=== PATIENT | female | born 1930 | race Native Hawaiian/Other Pacific Islander ===

== ENCOUNTER 2016-06-01 15:17 | Observation (INO) | payer OTHER ==
[~2016-06-01] VITALS: Ht 157.5 cm; Wt 64.2 kg
[~2016-06-01 15:17] MED LIST: ALAVERT10 M2 PO; ALPR0.5T24 PO; AMIT10TA21 PO; ASA LOW STR81 MG PO; CALCIUM + D600 MG OR; CALTRATE 600+D1 TAB PO; CENTRUM SILVER1 TAB PO; CIPRO500 MG PO; CLOP75TA2 PO; CRANBERRY250 MG PO; FE TABS325 MG PO; FERROUS GLUC324 MG PO; FURO20TA67 PO; HYDROCHLOROT12.5 M1 PO; HYDRTAB76 PO; HYZAAR1 TA1 PO; IRON OR; LEVO0.0723 PO; LEVOTHROID88 MCG PO; LIPITOR40 MG PO; LISI10TA11 PO; LORCET 5-325 MG1 TAB PO; LOSA50TA PO; MACROBID100 MG OR; MAG CITRAT1 PO; MECL25TA84 PO; MECLIZINE25 MG PO; METO25TA4 PO; MICRO-K10 MEQ PO; MUCINEX DM1 TA1 PO; NITR100C56 PO; PANT40TA PO; PREDNISONE5 M1 PO; PRILOSEC20 MG OR; PSYL0.52C PO; SIMV40TA57; SITA50TA2 PO; STOOL SOFTENER1 TA1 OR; TRAM50TA PO; TRAMADL/APAP1 TAB OR; VITAMIN D-32000 UNIT PO
[2016-06-01 16:57] LABS: PLATELET COUNT 180 K/uL (152-353)
[2016-06-01 17:17] LABS: PARTIAL THROMBOPLASTIN TIME 24.7 SECONDS (24.5-33.6)
[2016-06-01 17:20] LABS: POTASSIUM 3.8 mmol/L (3.6-5.2)
[2016-06-01] MEDS ORDERED: PANT40TA PO (17:26)
[2016-06-01 17:38] VITALS: BP 180/65; TEMP 97.7; Ht 157.5 cm; Wt 64.2 kg
[2016-06-01 20:00] VITALS: BP 168/51; TEMP 98.4
[2016-06-02 00:05] VITALS: TEMP 97.7
[2016-06-02 04:00] VITALS: BP 135/53; TEMP 97.9
[2016-06-02 05:23] LABS: PLATELET COUNT 171 K/uL (152-353)
[2016-06-02 05:52] LABS: POTASSIUM 3.4 mmol/L (3.6-5.2)
[2016-06-02 08:00] VITALS: BP 134/57; TEMP 98.7
[2016-06-02 12:00] VITALS: BP 156/58; TEMP 97.6
== END 2016-06-02 16:38 | disposition home or self-care (01) ==
LOC: MED/SURG 15:17
PROVIDERS: Emergency Medicine; ADMIT Family Medicine
DX: R07.89 Other chest pain (principal); K22.4 Dyskinesia of esophagus; R05 Cough; I10 Essential (primary) hypertension; E78.5 Hyperlipidemia, unspecified; I25.10 Atherosclerotic heart disease of native coronary artery without angina pectoris; Z95.0 Presence of cardiac pacemaker
CPT/HCPCS: 36415; 80053; 82550; 83735; 84484; 85027; 85610; 85730; 93005; 99220; G0378; G0379; J1650; J3490

== ENCOUNTER 2016-06-15 07:51 | Outpatient (CLI) | payer OTHER | END 2016-06-15 23:38 | disposition home or self-care (01) | LOC: RAD 07:51 | DX: K22.2 Esophageal obstruction (principal) ==

== ENCOUNTER 2016-08-15 16:50 | Outpatient (CLI) | payer OTHER | END 2016-08-15 19:34 | disposition home or self-care (01) | LOC: RAD 16:50 | DX: R14.0 Abdominal distension (gaseous) (principal) ==

== ENCOUNTER 2016-08-17 13:38 | Inpatient (IN) | payer OTHER ==
[~2016-08-17] VITALS: Ht 157.5 cm; Wt 62.7 kg
[2016-08-17 14:00] VITALS: BP 140/61; TEMP 98.4
[2016-08-17 15:32] LABS: PLATELET COUNT 209 K/uL (152-353)
[2016-08-17 15:38] LABS: POTASSIUM 3.5 mmol/L (3.6-5.2); SODIUM 131 mmol/L (136-145)
[2016-08-17 22:28] VITALS: BP 161/63; TEMP 98.5; Ht 157.5 cm; Wt 62.7 kg
[2016-08-18] VITALS: BP 161/65; TEMP 98.5
[2016-08-18] MEDS ORDERED: MONTELUKAST SOD10 MG PO (00:38)
[2016-08-18] MEDS ORDERED: AMLO2.5T PO (00:40)
[2016-08-18] MEDS ORDERED: MAGNESIUM250 M1 OR (00:41)
[2016-08-18] MEDS ORDERED: ACID REDUCER150 MG OR (00:43)
[2016-08-18] MEDS ORDERED: VITAMIN D-3400 UNIT OR (00:46)
[2016-08-18 04:00] VITALS: BP 147/76; TEMP 98
[2016-08-18] MEDS ORDERED: [UNRECOGNIZED DRUG - OTHER] OR (06:11)
[2016-08-18] MEDS ORDERED: POLY150C PO (06:30)
[2016-08-18 08:00] VITALS: BP 135/52; TEMP 97.9
[2016-08-18 09:55] LABS: POTASSIUM 3.1 mmol/L (3.6-5.2)
[2016-08-18 10:22] LABS: PLATELET COUNT 181 K/uL (152-353)
[2016-08-18 12:00] VITALS: BP 134/56; TEMP 97.8
[2016-08-18 16:00] VITALS: BP 144/61; TEMP 97.6
[2016-08-18 20:00] VITALS: BP 164/54; TEMP 98.3
[2016-08-19] VITALS: BP 176/48; TEMP 98.3
[2016-08-19 04:00] VITALS: BP 173/59; TEMP 98.6
[2016-08-19 05:27] LABS: PLATELET COUNT 187 K/uL (152-353)
[2016-08-19 06:01] LABS: POTASSIUM 3.8 mmol/L (3.6-5.2)
[2016-08-19 08:00] VITALS: BP 162/57; TEMP 98.6
[2016-08-19 12:00] VITALS: BP 161/67; TEMP 98.1
[2016-08-19 16:00] VITALS: BP 173/69; TEMP 98.5
== END 2016-08-19 17:05 | disposition home or self-care (01) | DRG 392 ==
LOC: ED 13:38 → MED/SURG 21:15
PROVIDERS: Internal Medicine; ADMIT Emergency Medicine
DX: K52.89 Other specified noninfective gastroenteritis and colitis (principal); R19.7 Diarrhea, unspecified; E11.9 Type 2 diabetes mellitus without complications; E87.6 Hypokalemia; E83.42 Hypomagnesemia; I12.9 Hypertensive chronic kidney disease with stage 1 through stage 4 chronic kidney disease, or unspecified chronic kidney disease; N18.3 Chronic kidney disease, stage 3 (moderate); R53.83 Other fatigue; R14.0 Abdominal distension (gaseous)
CPT/HCPCS: 36415; 80053; 81000; 82150; 82550; 83036; 83605; 83690; 83735; 84484; 85027; 86318; 87086; 87088; 87205; 87328; 87329; 87493; 96365; 96366; 96367; 96372; 96375; 96376; 99284; J1650; J2405; J2765; J3475; J3480; S0028

== ENCOUNTER 2016-08-29 08:38 | Outpatient (CLI) | payer OTHER ==
[~2016-08-29 08:38] MED LIST changes: +ACID REDUCER150 MG OR; +AMLO2.5T PO; +MAGNESIUM250 M1 OR; +MONTELUKAST SOD10 MG PO; +POLY150C PO; +VITAMIN D-3400 UNIT OR; +[UNRECOGNIZED DRUG - OTHER] OR
== END 2016-08-29 19:09 | disposition home or self-care (01) ==
LOC: LABW 08:38
DX: D64.89 Other specified anemias (principal)
CPT/HCPCS: 36415; 82607; 83090; 83918

== ENCOUNTER 2016-09-26 13:52 | Inpatient (IN) | payer OTHER | END 2016-10-20 10:15 | disposition still patient (30) | LOC: PAVB 13:52 | PROVIDERS: ADMIT Internal Medicine | DX: Z51.89 Encounter for other specified aftercare (principal) ==

== ENCOUNTER 2016-09-27 07:34 | Outpatient (CLI) | payer OTHER ==
[2016-09-27 08:44] LABS: PLATELET COUNT 230 K/uL (152-353)
[2016-09-27 08:47] LABS: POTASSIUM 3.9 mmol/L (3.6-5.2)
== END 2016-09-27 08:30 | disposition home or self-care (01) ==
LOC: LAB 07:34
PROVIDERS: Internal Medicine
DX: I10 Essential (primary) hypertension (principal); E83.10 Disorder of iron metabolism, unspecified; E11.22 Type 2 diabetes mellitus with diabetic chronic kidney disease; E55.9 Vitamin D deficiency, unspecified; E83.19 Other disorders of iron metabolism; E83.49 Other disorders of magnesium metabolism; R82.99 Other abnormal findings in urine
CPT/HCPCS: 36415; 80053; 81000; 82306; 82607; 83036; 83540; 83735; 84443; 85027; 87088

== ENCOUNTER 2016-09-29 13:11 | Outpatient (CLI) | payer OTHER | END 2016-09-29 19:10 | disposition home or self-care (01) | LOC: RAD 13:11 | DX: M25.552 Pain in left hip (principal); S00.83XA Contusion of other part of head, initial encounter ==

== ENCOUNTER 2016-09-30 05:31 | Outpatient (CLI) | payer OTHER | END 2016-09-30 19:28 | disposition home or self-care (01) | LOC: LAB 05:31 | DX: Z13.89 Encounter for screening for other disorder (principal) | CPT/HCPCS: 87081 ==

== ENCOUNTER 2016-10-08 01:47 | Outpatient (CLI) | payer OTHER | END 2016-10-08 19:51 | disposition home or self-care (01) | LOC: LAB 01:47 | DX: R41.82 Altered mental status, unspecified (principal) | CPT/HCPCS: 81000; 87088 ==

== ENCOUNTER 2016-10-20 10:25 | Inpatient (IN) | payer OTHER | END 2016-11-19 15:25 | disposition still patient (30) | LOC: PAVB 10:25 | PROVIDERS: ADMIT Internal Medicine | DX: Z51.89 Encounter for other specified aftercare (principal) ==

== ENCOUNTER 2016-11-19 15:56 | Inpatient (IN) | payer OTHER | END 2016-12-20 09:47 | disposition still patient (30) | LOC: PAVB 15:56 | PROVIDERS: ADMIT Internal Medicine | DX: Z51.89 Encounter for other specified aftercare (principal) ==

== ENCOUNTER 2016-12-20 11:16 | Inpatient (IN) | payer OTHER ==
[2017-01-13] MEDS ORDERED: OMEP40CA PO (17:45)
[2017-01-13] MEDS ORDERED: PRED FORTE1 % OP (17:45)
[2017-01-13] MEDS ORDERED: METAMUCIL28 % PO (17:46)
[2017-01-13] MEDS ORDERED: METO50TA27 PO (17:47)
[2017-01-13] MEDS ORDERED: GABA300C2 PO (17:52)
[2017-01-13] MEDS ORDERED: MELATONIN10 M4 PO (17:53)
[2017-01-13] MEDS ORDERED: FLONASE AL50 MCG/ACT (17:53)
== END 2017-01-20 08:45 | disposition still patient (30) ==
LOC: PAVB 11:16
PROVIDERS: ADMIT Internal Medicine
DX: Z51.89 Encounter for other specified aftercare (principal)

== ENCOUNTER 2016-12-21 09:48 | Outpatient (CLI) | payer OTHER | END 2016-12-21 19:42 | disposition home or self-care (01) | LOC: LAB 09:48 | DX: E11.9 Type 2 diabetes mellitus without complications (principal) | CPT/HCPCS: 36415; 83036 ==

== ENCOUNTER 2017-01-13 17:24 | Outpatient (CLI) | payer OTHER ==
[2017-01-13] MEDS ORDERED: OMEP40CA PO (17:45)
[2017-01-13] MEDS ORDERED: PRED FORTE1 % OP (17:45)
[2017-01-13] MEDS ORDERED: METAMUCIL28 % PO (17:46)
[2017-01-13] MEDS ORDERED: METO50TA27 PO (17:47)
[2017-01-13] MEDS ORDERED: GABA300C2 PO (17:52)
[2017-01-13] MEDS ORDERED: FLONASE AL50 MCG/ACT (17:53)
[2017-01-13] MEDS ORDERED: MELATONIN10 M4 PO (17:53)
== END 2017-01-13 17:25 ==
LOC: AMB 17:24
DX: M25.552 Pain in left hip (principal); W05.0XXA Fall from non-moving wheelchair, initial encounter; Y92.233 Cafeteria of hospital as the place of occurrence of the external cause

== ENCOUNTER 2017-01-13 17:35 | Emergency (ER) | payer OTHER ==
[~2017-01-13] VITALS: Ht 157.5 cm; Wt 55.8 kg
[2017-01-13 17:45] VITALS: BP 206/70; TEMP 98.3
[2017-01-13] MEDS ORDERED: OMEP40CA PO (17:45)
[2017-01-13] MEDS ORDERED: PRED FORTE1 % OP (17:45)
[2017-01-13] MEDS ORDERED: METAMUCIL28 % PO (17:46)
[2017-01-13] MEDS ORDERED: METO50TA27 PO (17:47)
[2017-01-13] MEDS ORDERED: GABA300C2 PO (17:52)
[2017-01-13] MEDS ORDERED: FLONASE AL50 MCG/ACT (17:53)
[2017-01-13] MEDS ORDERED: MELATONIN10 M4 PO (17:53)
== END 2017-01-13 20:07 | disposition home or self-care (01) ==
LOC: ED 17:35
DX: S72.012A Unspecified intracapsular fracture of left femur, initial encounter for closed fracture (principal); W01.0XXA Fall on same level from slipping, tripping and stumbling without subsequent striking against object, initial encounter; Y92.128 Other place in nursing home as the place of occurrence of the external cause
CPT/HCPCS: 96372; 99283; J1885

== ENCOUNTER 2017-01-18 09:25 | Outpatient (CLI) | payer OTHER ==
[~2017-01-18 09:25] MED LIST changes: +FLONASE AL50 MCG/ACT; +GABA300C2 PO; +MELATONIN10 M4 PO; +METAMUCIL28 % PO; +METO50TA27 PO; +OMEP40CA PO; +PRED FORTE1 % OP
== END 2017-01-18 09:35 | disposition short-term general hospital (02) ==
LOC: AMB 09:25
DX: S32.89XD Fracture of other parts of pelvis, subsequent encounter for fracture with routine healing (principal)
CPT/HCPCS: A0425; A0429

== ENCOUNTER 2017-01-18 13:44 | Outpatient (CLI) | payer OTHER ==
[2017-01-18 15:34] LABS: PLATELET COUNT 253 K/uL (152-353)
[2017-01-18 16:00] LABS: POTASSIUM 4.2 mmol/L (3.6-5.2)
== END 2017-01-18 19:17 | disposition home or self-care (01) ==
LOC: LABW 13:44
PROVIDERS: Internal Medicine
DX: Z01.818 Encounter for other preprocedural examination (principal); R82.99 Other abnormal findings in urine
CPT/HCPCS: 80053; 81000; 85027; 87086; 87088; 93005

== ENCOUNTER 2017-01-20 09:31 | Inpatient (IN) | payer OTHER | END 2017-02-19 10:09 | disposition still patient (30) | LOC: PAVB 09:31 | PROVIDERS: ADMIT Internal Medicine | DX: Z51.89 Encounter for other specified aftercare (principal) ==

== ENCOUNTER 2017-01-23 07:09 | Outpatient (CLI) | payer OTHER | END 2017-01-23 18:59 | disposition home or self-care (01) | LOC: LAB 07:09 | DX: D51.8 Other vitamin B12 deficiency anemias (principal) | CPT/HCPCS: 82607 ==

== ENCOUNTER 2017-01-31 04:55 | Outpatient (CLI) | payer OTHER | END 2017-01-31 20:02 | disposition home or self-care (01) | LOC: LAB 04:55 | DX: N39.0 Urinary tract infection, site not specified (principal) | CPT/HCPCS: 81000 ==

== ENCOUNTER 2017-02-19 10:18 | Inpatient (IN) | payer OTHER | END 2017-03-22 13:01 | disposition still patient (30) | LOC: PAVB 10:18 | PROVIDERS: ADMIT Internal Medicine ==

== ENCOUNTER 2017-03-22 14:08 | Inpatient (IN) | payer OTHER | END 2017-04-21 09:23 | disposition still patient (30) | LOC: PAVB 14:08 | PROVIDERS: ADMIT Internal Medicine ==

== ENCOUNTER 2017-03-24 05:59 | Outpatient (CLI) | payer OTHER ==
[2017-03-24 06:31] LABS: PLATELET COUNT 193 K/uL (152-353)
[2017-03-24 07:01] LABS: POTASSIUM 4.2 mmol/L (3.6-5.2)
== END 2017-03-24 07:00 | disposition home or self-care (01) ==
LOC: LAB 05:59
PROVIDERS: Internal Medicine
DX: I10 Essential (primary) hypertension (principal); E11.22 Type 2 diabetes mellitus with diabetic chronic kidney disease; E55.9 Vitamin D deficiency, unspecified
CPT/HCPCS: 80053; 82306; 82607; 83036; 83540; 83735; 84443; 85027

== ENCOUNTER 2017-04-21 09:59 | Inpatient (IN) | payer OTHER | END 2017-05-22 09:42 | disposition still patient (30) | LOC: PAVB 09:59 | PROVIDERS: ADMIT Internal Medicine ==

== ENCOUNTER 2017-05-22 10:43 | Inpatient (IN) | payer OTHER | END 2017-06-22 09:58 | disposition still patient (30) | LOC: PAVB 10:43 | PROVIDERS: ADMIT Internal Medicine ==

== ENCOUNTER 2017-06-05 13:48 | Outpatient (CLI) | payer OTHER | END 2017-06-05 22:02 | disposition home or self-care (01) | LOC: RAD 13:48 | DX: R05 Cough (principal) ==

== ENCOUNTER 2017-06-22 11:01 | Inpatient (IN) | payer OTHER | END 2017-07-20 09:22 | disposition still patient (30) | LOC: PAVB 11:01 | PROVIDERS: ADMIT Internal Medicine ==

== ENCOUNTER 2017-06-27 06:22 | Outpatient (CLI) | payer OTHER | END 2017-06-27 20:03 | disposition home or self-care (01) | LOC: LAB 06:22 | DX: E11.9 Type 2 diabetes mellitus without complications (principal) | CPT/HCPCS: 83036 ==

== ENCOUNTER 2017-07-20 10:23 | Inpatient (IN) | payer OTHER | END 2017-08-20 08:00 | disposition still patient (30) | LOC: PAVB 10:23 | PROVIDERS: ADMIT Internal Medicine ==

== ENCOUNTER 2017-08-02 15:18 | Outpatient (CLI) | payer OTHER | END 2017-08-03 15:18 | disposition home or self-care (01) | LOC: LAB 15:18 | DX: S91.102A Unspecified open wound of left great toe without damage to nail, initial encounter (principal) | CPT/HCPCS: 87070; 87077; 87186; 87205 ==

== ENCOUNTER 2017-08-20 09:00 | Inpatient (IN) | payer OTHER ==
[2017-08-25] MEDS ORDERED: CETI10TA PO (10:29)
[2017-08-25] MEDS ORDERED: FERROUS SULF325 M1 PO (10:32)
[2017-08-25] MEDS ORDERED: OXYB5TAB56 PO (10:33)
[2017-08-25] MEDS ORDERED: CARAFATE1 GM PO (10:34)
[2017-08-25] MEDS ORDERED: SYSTANE GEL1 ML OPTH (10:35)
[2017-08-25] MEDS ORDERED: DOCU100C10 PO (10:38)
[2017-08-25] MEDS ORDERED: PROBIOTIC1 TAB PO (10:39)
== END 2017-09-19 09:08 | disposition still patient (30) ==
LOC: PAVB 09:00
PROVIDERS: ADMIT Internal Medicine
DX: J15.20 Pneumonia due to staphylococcus, unspecified (principal); B95.62 Methicillin resistant Staphylococcus aureus infection as the cause of diseases classified elsewhere; R26.9 Unspecified abnormalities of gait and mobility; I12.9 Hypertensive chronic kidney disease with stage 1 through stage 4 chronic kidney disease, or unspecified chronic kidney disease; K57.91 Diverticulosis of intestine, part unspecified, without perforation or abscess with bleeding; M40.04 Postural kyphosis, thoracic region; M43.16 Spondylolisthesis, lumbar region; M85.88 Other specified disorders of bone density and structure, other site; N32.81 Overactive bladder; R42 Dizziness and giddiness

== ENCOUNTER 2017-08-22 07:29 | Outpatient (CLI) | payer OTHER ==
[2017-08-22 08:27] LABS: PLATELET COUNT 159 K/uL (152-353)
== END 2017-08-22 22:52 | disposition home or self-care (01) ==
LOC: LAB 07:29
PROVIDERS: Internal Medicine
DX: I10 Essential (primary) hypertension (principal); R53.1 Weakness; R05 Cough
CPT/HCPCS: 80053; 85027

== ENCOUNTER 2017-08-24 08:29 | Inpatient (IN) | payer OTHER ==
[~2017-08-24] VITALS: Ht 157.5 cm; Wt 61.4 kg
[2017-08-24 19:00] VITALS: BP 155/62
[2017-08-24 20:00] VITALS: BP 152/56; TEMP 98.7
[2017-08-24 21:00] VITALS: BP 162/73
[2017-08-24 22:00] VITALS: BP 150/65
[2017-08-24 22:34] LABS: PLATELET COUNT 187 K/uL (152-353)
[2017-08-24 23:00] VITALS: BP 165/60
[2017-08-25] VITALS (17 sets, daily range): BP systolic 141–173; BP diastolic 48–138; TEMP 98.1–100; Ht 157.5 cm; Wt 61.4 kg
[2017-08-25] MEDS ORDERED: CETI10TA PO (10:29)
[2017-08-25] MEDS ORDERED: FERROUS SULF325 M1 PO (10:32)
[2017-08-25] MEDS ORDERED: OXYB5TAB56 PO (10:33)
[2017-08-25] MEDS ORDERED: CARAFATE1 GM PO (10:34)
[2017-08-25] MEDS ORDERED: SYSTANE GEL1 ML OPTH (10:35)
[2017-08-25] MEDS ORDERED: DOCU100C10 PO (10:38)
[2017-08-25] MEDS ORDERED: PROBIOTIC1 TAB PO (10:39)
[2017-08-26] VITALS: BP 137/47; TEMP 99.1
[2017-08-26 04:00] VITALS: BP 166/50; TEMP 99
[2017-08-26 16:00] VITALS: BP 142/67; TEMP 98.1
[2017-08-26 19:58] VITALS: BP 158/49; TEMP 99.1
[2017-08-26 23:58] VITALS: BP 188/66; TEMP 99.5
[2017-08-27 04:00] VITALS: BP 188/73; TEMP 98.6
[2017-08-27 04:22] LABS: PLATELET COUNT 209 K/uL (152-353)
[2017-08-27 04:37] LABS: POTASSIUM 3.9 mmol/L (3.6-5.2)
[2017-08-27 08:00] VITALS: BP 184/58; TEMP 97.9
[2017-08-27 12:00] VITALS: BP 198/67; TEMP 98.8
[2017-08-27 16:00] VITALS: BP 178/90; TEMP 98
[2017-08-27 20:00] VITALS: BP 174/56; TEMP 98.8
[2017-08-28] VITALS: BP 172/54; TEMP 98.4
[2017-08-28 04:00] VITALS: BP 183/59; TEMP 98
[2017-08-28 07:41] VITALS: BP 186/68; TEMP 97.9
[2017-08-28 11:57] VITALS: BP 189/62; TEMP 99.1
[2017-08-28 16:00] VITALS: BP 182/69; TEMP 99.2
[2017-08-28 20:06] VITALS: BP 196/62; TEMP 98.4
[2017-08-29] VITALS: BP 196/73; TEMP 98.5
[2017-08-29 04:00] VITALS: BP 206/83; TEMP 98
[2017-08-29 08:00] VITALS: BP 138/79; BP 204/71; TEMP 97.9
[2017-08-29 12:00] VITALS: BP 131/68; TEMP 98.7
[2017-08-29 16:00] VITALS: BP 198/76; TEMP 99.1
[2017-08-29 20:00] VITALS: BP 142/63; TEMP 98.9
[2017-08-30] VITALS: BP 175/64; TEMP 98
[2017-08-30 08:00] VITALS: BP 210/78; TEMP 97.9
[2017-08-30 12:00] VITALS: BP 201/61; TEMP 98
[2017-08-30 16:00] VITALS: BP 158/62; TEMP 97.8
[2017-08-30 20:00] VITALS: BP 113/51; TEMP 98.2
[2017-08-31] VITALS: BP 122/78; TEMP 98.2
[2017-08-31 04:00] VITALS: BP 180/71; TEMP 98.5
[2017-08-31 05:40] LABS: PLATELET COUNT 283 K/uL (152-353)
[2017-08-31 05:53] LABS: POTASSIUM 3.8 mmol/L (3.6-5.2)
[2017-08-31 12:00] VITALS: BP 178/76; TEMP 99.4
== END 2017-08-31 13:30 | DRG 177 ==
LOC: RAD 08:29 → ICU 18:47 → MED/SURG 08-25 15:29
PROVIDERS: ADMIT Internal Medicine
DX: J15.212 Pneumonia due to Methicillin resistant Staphylococcus aureus (principal); J96.01 Acute respiratory failure with hypoxia; J32.8 Other chronic sinusitis; I25.10 Atherosclerotic heart disease of native coronary artery without angina pectoris; I12.9 Hypertensive chronic kidney disease with stage 1 through stage 4 chronic kidney disease, or unspecified chronic kidney disease; E11.22 Type 2 diabetes mellitus with diabetic chronic kidney disease; N18.3 Chronic kidney disease, stage 3 (moderate); K21.9 Gastro-esophageal reflux disease without esophagitis; E78.00 Pure hypercholesterolemia, unspecified; I10 Essential (primary) hypertension; R53.1 Weakness; R05 Cough
CPT/HCPCS: 80053; 80202; 81000; 85027; 87040; 87070; 87077; 87185; 87186; 87205; 93005; 94640; 94664; 94760; J0696; J2185; J3370

== ENCOUNTER 2017-09-19 10:05 | Inpatient (IN) | payer OTHER ==
[~2017-09-19 10:05] MED LIST changes: +CARAFATE1 GM PO; +CETI10TA PO; +DOCU100C10 PO; +FERROUS SULF325 M1 PO; +OXYB5TAB56 PO; +PROBIOTIC1 TAB PO; +SYSTANE GEL1 ML OPTH
== END 2017-10-20 08:56 | disposition still patient (30) ==
LOC: PAVB 10:05
PROVIDERS: ADMIT Internal Medicine
DX: J15.20 Pneumonia due to staphylococcus, unspecified (principal); R26.89 Other abnormalities of gait and mobility; M25.512 Pain in left shoulder; I12.9 Hypertensive chronic kidney disease with stage 1 through stage 4 chronic kidney disease, or unspecified chronic kidney disease; K57.91 Diverticulosis of intestine, part unspecified, without perforation or abscess with bleeding; M40.04 Postural kyphosis, thoracic region; M43.16 Spondylolisthesis, lumbar region; M85.88 Other specified disorders of bone density and structure, other site; N32.81 Overactive bladder; R26.9 Unspecified abnormalities of gait and mobility
CPT/HCPCS: 80053; 82306; 82607; 83036; 83540; 83735; 84443; 85027

== ENCOUNTER 2017-09-20 07:32 | Outpatient (CLI) | payer OTHER ==
[2017-09-20 08:25] LABS: PLATELET COUNT 145 K/uL (152-353)
[2017-09-20 09:00] LABS: POTASSIUM 4.2 mmol/L (3.6-5.2)
== END 2017-09-20 21:37 | disposition home or self-care (01) ==
LOC: LAB 07:32
PROVIDERS: Internal Medicine
DX: I10 Essential (primary) hypertension (principal); E11.9 Type 2 diabetes mellitus without complications; E55.9 Vitamin D deficiency, unspecified; N18.3 Chronic kidney disease, stage 3 (moderate); Z79.899 Other long term (current) drug therapy; Z51.81 Encounter for therapeutic drug level monitoring
CPT/HCPCS: 80053; 82306; 82607; 83036; 83540; 83735; 84443; 85027

== ENCOUNTER 2017-10-05 13:19 | Outpatient (CLI) | payer OTHER | END 2017-10-05 23:36 | disposition home or self-care (01) | LOC: US 13:19 | DX: I25.10 Atherosclerotic heart disease of native coronary artery without angina pectoris (principal) ==

== ENCOUNTER 2017-10-11 07:39 | Outpatient (CLI) | payer OTHER | END 2017-10-11 19:56 | disposition home or self-care (01) | LOC: CT 07:39 | DX: I65.29 Occlusion and stenosis of unspecified carotid artery (principal) | CPT/HCPCS: Q9963 ==

== ENCOUNTER 2017-10-20 09:51 | Inpatient (IN) | payer OTHER | END 2017-11-19 14:20 | disposition still patient (30) | LOC: PAVB 09:51 | PROVIDERS: ADMIT Internal Medicine ==

== ENCOUNTER 2017-11-19 14:57 | Inpatient (IN) | payer OTHER | END 2017-12-20 08:00 | disposition still patient (30) | LOC: PAVB 14:57 | PROVIDERS: ADMIT Internal Medicine ==

== ENCOUNTER 2017-12-20 09:00 | Inpatient (IN) | payer OTHER | END 2018-01-20 10:19 | disposition still patient (30) | LOC: PAVB 09:00 | PROVIDERS: ADMIT Internal Medicine ==

== ENCOUNTER 2017-12-25 06:53 | Outpatient (CLI) | payer OTHER | END 2017-12-25 19:34 | disposition home or self-care (01) | LOC: LAB 06:53 | DX: E11.9 Type 2 diabetes mellitus without complications (principal); R05 Cough; R06.2 Wheezing | CPT/HCPCS: 36415; 83036 ==

== ENCOUNTER 2018-01-20 11:05 | Inpatient (IN) | payer OTHER | END 2018-02-19 09:35 | disposition still patient (30) | LOC: PAVB 11:05 | PROVIDERS: ADMIT Internal Medicine ==

== ENCOUNTER 2018-02-01 16:55 | Outpatient (CLI) | payer OTHER | END 2018-02-01 19:53 | disposition home or self-care (01) | LOC: LAB 16:55 | DX: R30.9 Painful micturition, unspecified (principal); M54.5 Low back pain | CPT/HCPCS: 81000; 87088 ==

== ENCOUNTER 2018-02-07 20:02 | Outpatient (CLI) | payer OTHER | END 2018-02-07 21:00 | disposition home or self-care (01) | LOC: LAB 20:02 | DX: R35.0 Frequency of micturition (principal); R30.0 Dysuria | CPT/HCPCS: 81000; 87088 ==

== ENCOUNTER 2018-02-19 10:23 | Inpatient (IN) | payer OTHER | END 2018-03-22 08:49 | disposition still patient (30) | LOC: PAVB 10:23 | PROVIDERS: ADMIT Internal Medicine ==

== ENCOUNTER 2018-03-08 13:57 | Outpatient (CLI) | payer OTHER | END 2018-03-08 20:11 | disposition home or self-care (01) | LOC: RAD 13:57 | DX: L97.518 Non-pressure chronic ulcer of other part of right foot with other specified severity (principal); M20.42 Other hammer toe(s) (acquired), left foot; M20.41 Other hammer toe(s) (acquired), right foot ==

== ENCOUNTER 2018-03-11 03:45 | Outpatient (CLI) | payer OTHER | END 2018-03-11 20:09 | disposition home or self-care (01) | LOC: RAD 03:45 | DX: S00.83XA Contusion of other part of head, initial encounter (principal); X58.XXXA Exposure to other specified factors, initial encounter; Y93.89 Activity, other specified; Y92.89 Other specified places as the place of occurrence of the external cause; S09.8XXA Other specified injuries of head, initial encounter; R07.82 Intercostal pain ==

== ENCOUNTER 2018-03-22 10:04 | Inpatient (IN) | payer OTHER | END 2018-04-21 08:33 | disposition still patient (30) | LOC: PAVB 10:04 | PROVIDERS: ADMIT Internal Medicine ==

== ENCOUNTER 2018-03-26 07:24 | Outpatient (CLI) | payer OTHER ==
[2018-03-26 08:15] LABS: PLATELET COUNT 145 K/uL (152-353)
== END 2018-03-26 19:17 | disposition home or self-care (01) ==
LOC: LAB 07:24
PROVIDERS: Internal Medicine
DX: E11.9 Type 2 diabetes mellitus without complications (principal); I10 Essential (primary) hypertension; E55.9 Vitamin D deficiency, unspecified; E53.8 Deficiency of other specified B group vitamins
CPT/HCPCS: 80053; 82306; 82607; 83036; 83540; 83735; 84443; 85027

== ENCOUNTER 2018-03-27 12:37 | Outpatient (CLI) | payer OTHER | END 2018-03-27 22:19 | disposition home or self-care (01) | LOC: LAB 12:37 | DX: R35.8 Other polyuria (principal) | CPT/HCPCS: 81000; 87077; 87086; 87088; 87185; 87186 ==

== ENCOUNTER 2018-04-21 09:21 | Inpatient (IN) | payer OTHER | END 2018-05-22 11:06 | disposition still patient (30) | LOC: PAVB 09:21 | PROVIDERS: ADMIT Internal Medicine ==

== ENCOUNTER 2018-04-27 06:02 | Outpatient (CLI) | payer OTHER | END 2018-04-27 22:51 | disposition home or self-care (01) | LOC: LAB 06:02 | DX: E55.9 Vitamin D deficiency, unspecified (principal); E07.9 Disorder of thyroid, unspecified | CPT/HCPCS: 36415; 82306; 84443 ==

== ENCOUNTER 2018-05-22 11:29 | Inpatient (IN) | payer OTHER | END 2018-06-22 10:55 | disposition still patient (30) | LOC: PAVB 11:29 | PROVIDERS: ADMIT Internal Medicine ==

== ENCOUNTER 2018-06-18 05:42 | Outpatient (CLI) | payer OTHER ==
[2018-06-18 06:37] LABS: POTASSIUM 4.2 mmol/L (3.6-5.2)
== END 2018-06-18 19:08 | disposition home or self-care (01) ==
LOC: LAB 05:42
PROVIDERS: Internal Medicine
DX: Z79.899 Other long term (current) drug therapy (principal)
CPT/HCPCS: 80048

== ENCOUNTER 2018-06-20 08:51 | Outpatient (CLI) | payer OTHER | END 2018-06-20 22:58 | disposition home or self-care (01) | LOC: CT 08:51 | DX: I65.29 Occlusion and stenosis of unspecified carotid artery (principal); I73.9 Peripheral vascular disease, unspecified | CPT/HCPCS: 82565; 84520 ==

== ENCOUNTER 2018-06-21 13:28 | Outpatient (CLI) | payer OTHER | END 2018-06-21 23:17 | disposition home or self-care (01) | LOC: RAD 13:28 | DX: I65.29 Occlusion and stenosis of unspecified carotid artery (principal); I73.9 Peripheral vascular disease, unspecified ==

== ENCOUNTER 2018-06-22 11:19 | Inpatient (IN) | payer OTHER | END 2018-07-20 10:20 | disposition still patient (30) | LOC: PAVB 11:19 | PROVIDERS: ADMIT Internal Medicine ==

== ENCOUNTER 2018-06-25 09:09 | Outpatient (CLI) | payer OTHER | END 2018-06-25 20:49 | disposition home or self-care (01) | LOC: LAB 09:09 → MRI 09:30 → LAB 20:49 | DX: E11.21 Type 2 diabetes mellitus with diabetic nephropathy (principal) | CPT/HCPCS: 36415; 83036 ==

== ENCOUNTER 2018-07-20 11:16 | Inpatient (IN) | payer OTHER | END 2018-08-20 10:40 | disposition still patient (30) | LOC: PAVB 11:16 | PROVIDERS: ADMIT Internal Medicine ==

== ENCOUNTER 2018-08-17 13:27 | Outpatient (CLI) | payer OTHER | END 2018-08-17 22:28 | disposition home or self-care (01) | LOC: US 13:27 | DX: I65.23 Occlusion and stenosis of bilateral carotid arteries (principal) ==

== ENCOUNTER 2018-08-20 11:26 | Inpatient (IN) | payer OTHER | END 2018-09-19 11:18 | disposition still patient (30) | LOC: PAVB 11:26 | PROVIDERS: ADMIT Internal Medicine ==

== ENCOUNTER 2018-09-12 04:40 | Outpatient (CLI) | payer OTHER | END 2018-09-12 20:08 | disposition home or self-care (01) | LOC: LAB 04:40 | DX: R30.9 Painful micturition, unspecified (principal) | CPT/HCPCS: 81000 ==

== ENCOUNTER 2018-09-19 12:29 | Inpatient (IN) | payer OTHER | END 2018-10-20 08:39 | disposition still patient (30) | LOC: PAVB 12:29 | PROVIDERS: ADMIT Internal Medicine | DX: Z51.89 Encounter for other specified aftercare (principal) ==

== ENCOUNTER 2018-09-20 05:59 | Outpatient (CLI) | payer OTHER ==
[2018-09-20 06:59] LABS: PLATELET COUNT 164 K/uL (152-353)
[2018-09-20 08:13] LABS: POTASSIUM 3.7 mmol/L (3.6-5.2)
== END 2018-09-20 19:46 | disposition home or self-care (01) ==
LOC: LAB 05:59
PROVIDERS: Internal Medicine
DX: I10 Essential (primary) hypertension (principal); D50.8 Other iron deficiency anemias; E11.9 Type 2 diabetes mellitus without complications
CPT/HCPCS: 80053; 82306; 82607; 83036; 83540; 83735; 84443; 85027

== ENCOUNTER 2018-10-01 06:13 | Outpatient (CLI) | payer OTHER | END 2018-10-01 22:42 | disposition home or self-care (01) | LOC: LAB 06:13 | DX: N89.8 Other specified noninflammatory disorders of vagina (principal) | CPT/HCPCS: 87070; 87077; 87186 ==

== ENCOUNTER 2018-10-17 20:15 | Outpatient (CLI) | payer OTHER | END 2018-10-17 21:10 | disposition home or self-care (01) | LOC: LAB 20:15 | DX: N39.0 Urinary tract infection, site not specified (principal) | CPT/HCPCS: 81000; 87088 ==

== ENCOUNTER 2018-10-20 09:34 | Inpatient (IN) | payer OTHER | END 2018-11-19 09:38 | disposition still patient (30) | LOC: PAVB 09:34 | PROVIDERS: ADMIT Internal Medicine ==

== ENCOUNTER 2018-10-30 18:29 | Outpatient (CLI) | payer OTHER | END 2018-10-30 22:56 | disposition home or self-care (01) | LOC: LAB 18:29 | DX: R82.998 Other abnormal findings in urine (principal) | CPT/HCPCS: 81000; 87077; 87086; 87088; 87186 ==

== ENCOUNTER 2018-11-19 11:31 | Inpatient (IN) | payer OTHER | END 2018-12-20 10:36 | disposition still patient (30) | LOC: PAVB 11:31 | PROVIDERS: ADMIT Internal Medicine ==

== ENCOUNTER 2018-12-20 11:23 | Inpatient (IN) | payer OTHER | END 2019-01-20 16:27 | disposition still patient (30) | LOC: PAVB 11:23 | PROVIDERS: ADMIT Internal Medicine ==

== ENCOUNTER 2018-12-25 06:45 | Outpatient (CLI) | payer OTHER | END 2018-12-25 23:13 | disposition home or self-care (01) | LOC: LAB 06:45 | DX: E11.21 Type 2 diabetes mellitus with diabetic nephropathy (principal) | CPT/HCPCS: 36415; 83036 ==

== ENCOUNTER 2019-01-20 17:12 | Inpatient (IN) | payer OTHER | END 2019-02-19 09:21 | disposition still patient (30) | LOC: PAVB 17:12 | PROVIDERS: ADMIT Internal Medicine ==

== ENCOUNTER 2019-02-19 11:08 | Inpatient (IN) | payer OTHER | END 2019-03-22 11:10 | disposition still patient (30) | LOC: PAVB 11:08 | PROVIDERS: ADMIT Internal Medicine ==

== ENCOUNTER 2019-03-22 11:40 | Inpatient (IN) | payer OTHER | END 2019-04-21 08:00 | disposition still patient (30) | LOC: PAVB 11:40 | PROVIDERS: ADMIT Internal Medicine ==

== ENCOUNTER 2019-03-27 05:45 | Outpatient (CLI) | payer OTHER ==
[2019-03-27 06:31] LABS: PLATELET COUNT 175 K/uL (152-353)
[2019-03-27 07:16] LABS: POTASSIUM 3.9 mmol/L (3.6-5.2)
== END 2019-03-27 21:34 | disposition home or self-care (01) ==
LOC: LAB 05:45
PROVIDERS: Internal Medicine
DX: E11.9 Type 2 diabetes mellitus without complications (principal); D64.89 Other specified anemias; M19.90 Unspecified osteoarthritis, unspecified site; I10 Essential (primary) hypertension
CPT/HCPCS: 80053; 82306; 82607; 83036; 83540; 83735; 84443; 85027

== ENCOUNTER 2019-04-21 10:10 | Inpatient (IN) | payer OTHER | END 2019-05-22 08:35 | disposition still patient (30) | LOC: PAVB 10:10 | PROVIDERS: ADMIT Internal Medicine ==

== ENCOUNTER 2019-05-22 08:56 | Inpatient (IN) | payer OTHER | END 2019-06-22 09:57 | disposition still patient (30) | LOC: PAVB 08:56 | PROVIDERS: ADMIT Internal Medicine ==

== ENCOUNTER 2019-05-23 19:00 | Outpatient (CLI) | payer OTHER | END 2019-05-23 19:31 | disposition home or self-care (01) | LOC: LAB 19:00 | DX: R30.0 Dysuria (principal) | CPT/HCPCS: 81000; 87088 ==

== ENCOUNTER 2019-06-22 10:40 | Inpatient (IN) | payer OTHER | END 2019-07-21 13:16 | disposition still patient (30) | LOC: PAVB 10:40 | PROVIDERS: ADMIT Internal Medicine ==

== ENCOUNTER 2019-06-25 05:51 | Outpatient (CLI) | payer OTHER | END 2019-06-25 22:17 | disposition home or self-care (01) | LOC: LAB 05:51 | DX: E11.40 Type 2 diabetes mellitus with diabetic neuropathy, unspecified (principal) | CPT/HCPCS: 83036 ==

== ENCOUNTER 2019-06-26 13:49 | Outpatient (CLI) | payer OTHER | END 2019-06-26 22:31 | disposition home or self-care (01) | LOC: RAD 13:49 | DX: M25.551 Pain in right hip (principal) ==

== ENCOUNTER 2019-07-02 16:28 | Outpatient (CLI) | payer OTHER | END 2019-07-02 20:15 | disposition home or self-care (01) | LOC: RAD 16:28 | DX: R06.02 Shortness of breath (principal) ==

== ENCOUNTER 2019-07-02 17:19 | Outpatient (CLI) | payer OTHER ==
[2019-07-02 18:38] LABS: PLATELET COUNT 145 K/uL (152-353)
[2019-07-02 18:40] LABS: POTASSIUM 4.2 mmol/L (3.6-5.2)
== END 2019-07-02 20:16 | disposition home or self-care (01) ==
LOC: LABW 17:19
PROVIDERS: Internal Medicine
DX: I10 Essential (primary) hypertension (principal)
CPT/HCPCS: 36415; 80048; 85027

== ENCOUNTER 2019-07-03 11:36 | Outpatient (CLI) | payer OTHER | END 2019-07-03 20:22 | disposition home or self-care (01) | LOC: LAB 11:36 | DX: R06.02 Shortness of breath (principal); R09.02 Hypoxemia | CPT/HCPCS: 83880 ==

== ENCOUNTER 2019-07-11 05:25 | Outpatient (CLI) | payer OTHER ==
[2019-07-11 06:28] LABS: POTASSIUM 4.2 mmol/L (3.6-5.2)
== END 2019-07-11 19:09 | disposition home or self-care (01) ==
LOC: LAB 05:25
PROVIDERS: Internal Medicine
DX: I50.9 Heart failure, unspecified (principal); I25.10 Atherosclerotic heart disease of native coronary artery without angina pectoris
CPT/HCPCS: 80048; 83880

== ENCOUNTER 2019-07-21 14:05 | Inpatient (IN) | payer OTHER | END 2019-08-21 09:42 | disposition still patient (30) | LOC: PAVB 14:05 | PROVIDERS: ADMIT Internal Medicine ==

== ENCOUNTER 2019-07-27 19:35 | Outpatient (CLI) | payer OTHER ==
[2019-07-27 19:54] LABS: PLATELET COUNT 190 K/uL (152-353)
[2019-07-27 20:03] LABS: POTASSIUM 3.7 mmol/L (3.6-5.2)
== END 2019-07-27 22:49 | disposition home or self-care (01) ==
LOC: RAD 19:35
PROVIDERS: Internal Medicine
DX: J44.9 Chronic obstructive pulmonary disease, unspecified (principal); I50.9 Heart failure, unspecified
CPT/HCPCS: 80053; 83880; 85027

== ENCOUNTER 2019-07-31 15:20 | Outpatient (CLI) | payer OTHER | END 2019-07-31 22:35 | disposition home or self-care (01) | LOC: RESP 15:20 | DX: I50.9 Heart failure, unspecified (principal); I25.10 Atherosclerotic heart disease of native coronary artery without angina pectoris | CPT/HCPCS: 93306 ==

== ENCOUNTER 2019-08-01 18:20 | Outpatient (CLI) | payer OTHER ==
[2019-08-01 19:11] LABS: PLATELET COUNT 168 K/uL (152-353)
[2019-08-01 19:19] LABS: POTASSIUM 3.8 mmol/L (3.6-5.2)
== END 2019-08-01 22:48 | disposition home or self-care (01) ==
LOC: LAB 18:20
PROVIDERS: Internal Medicine
DX: I50.23 Acute on chronic systolic (congestive) heart failure (principal)
CPT/HCPCS: 80048; 83880; 85027

== ENCOUNTER 2019-08-21 10:32 | Inpatient (IN) | payer OTHER | END 2019-09-20 09:03 | disposition still patient (30) | LOC: PAVB 10:32 | PROVIDERS: ADMIT Internal Medicine ==

== ENCOUNTER 2019-09-20 10:11 | Inpatient (IN) | payer OTHER ==
[2019-09-27] MEDS ORDERED: MYRBETRIQ50 MG PO (03:04)
[2019-09-27] MEDS ORDERED: FURO40TA93 PO (03:12)
[2019-09-27] MEDS ORDERED: AMLODIPINE BESYLATE PO (03:15)
[2019-09-27] MEDS ORDERED: CELEXA10 MG PO (03:17)
[2019-10-15] MEDS ORDERED: ALPR0.5T24 PO (13:00)
[2019-10-15] MEDS ORDERED: ATOR20TA2 PO (13:01)
[2019-10-15] MEDS ORDERED: FURO40TA93 PO (13:03)
== END 2019-10-21 09:12 | disposition still patient (30) ==
LOC: PAVB 10:11
PROVIDERS: ADMIT Internal Medicine
DX: U07.1 COVID-19 (principal); J18.9 Pneumonia, unspecified organism; R53.1 Weakness; M62.81 Muscle weakness (generalized); Z74.1 Need for assistance with personal care
CPT/HCPCS: 94667

== ENCOUNTER 2019-09-23 07:54 | Outpatient (CLI) | payer OTHER ==
[2019-09-23 08:51] LABS: POTASSIUM 3.7 mmol/L (3.6-5.2)
[2019-09-23 12:31] LABS: PLATELET COUNT 144 K/uL (152-353)
== END 2019-09-23 19:24 | disposition home or self-care (01) ==
LOC: LAB 07:54
PROVIDERS: Internal Medicine
DX: E11.40 Type 2 diabetes mellitus with diabetic neuropathy, unspecified (principal); D64.89 Other specified anemias; E87.6 Hypokalemia; I12.9 Hypertensive chronic kidney disease with stage 1 through stage 4 chronic kidney disease, or unspecified chronic kidney disease
CPT/HCPCS: 80053; 82306; 82607; 83540; 83735; 84443; 85027

== ENCOUNTER 2019-09-24 10:13 | Outpatient (CLI) | payer OTHER | END 2019-09-24 19:08 | disposition home or self-care (01) | LOC: LAB 10:13 | DX: E11.40 Type 2 diabetes mellitus with diabetic neuropathy, unspecified (principal) | CPT/HCPCS: 83036 ==

== ENCOUNTER 2019-09-26 15:32 | Inpatient (IN) | payer OTHER ==
[~2019-09-26] VITALS: Ht 157.5 cm; Wt 57.6 kg
[2019-09-26 15:32] VITALS: BP 169/71; TEMP 99.1
[2019-09-26 15:55] LABS: PLATELET COUNT 148 K/uL (152-353)
[2019-09-26 16:03] LABS: POTASSIUM 3.4 mmol/L (3.6-5.2)
[2019-09-26 16:16] LABS: PARTIAL THROMBOPLASTIN TIME 27.7 SECONDS (24.5-33.6)
[2019-09-26 16:32] VITALS: BP 152/58
[2019-09-26 17:32] VITALS: BP 144/58
[2019-09-26 18:32] VITALS: BP 156/57
[2019-09-26 21:15] VITALS: BP 142/63; TEMP 100.4
[2019-09-26 23:08] VITALS: BP 142/63; TEMP 100.4; Ht 157.5 cm; Wt 57.6 kg
[2019-09-27] VITALS: BP 138/64; TEMP 99.1
[2019-09-27] MEDS ORDERED: MYRBETRIQ50 MG PO (03:04)
[2019-09-27] MEDS ORDERED: FURO40TA93 PO (03:12)
[2019-09-27] MEDS ORDERED: AMLODIPINE BESYLATE PO (03:15)
[2019-09-27] MEDS ORDERED: CELEXA10 MG PO (03:17)
[2019-09-27 04:00] VITALS: BP 143/80; TEMP 100.8
[2019-09-27 08:00] VITALS: BP 146/60; TEMP 98.4
[2019-09-27 09:20] LABS: POTASSIUM 3.3 mmol/L (3.6-5.2)
[2019-09-27 10:12] LABS: PLATELET COUNT 115 K/uL (152-353)
[2019-09-27 12:00] VITALS: BP 136/68; TEMP 98.2
[2019-09-27 16:00] VITALS: BP 156/59; TEMP 98.1
[2019-09-27 20:16] VITALS: BP 158/81; TEMP 98
[2019-09-28 00:11] VITALS: BP 118/42; TEMP 97.9
[2019-09-28 04:19] VITALS: BP 143/69; TEMP 98.2
[2019-09-28 08:00] VITALS: BP 153/61; TEMP 100.4
[2019-09-28 09:59] LABS: PLATELET COUNT 109 K/uL (152-353)
[2019-09-28 10:16] LABS: POTASSIUM 3.5 mmol/L (3.6-5.2)
[2019-09-28 12:01] VITALS: BP 125/48; TEMP 100.5
[2019-09-28 16:00] VITALS: BP 110/48; TEMP 98.4
[2019-09-28 20:00] VITALS: BP 123/54; TEMP 100.1
[2019-09-29] VITALS: BP 125/50; TEMP 103.3
[2019-09-29 04:00] VITALS: BP 113/41; TEMP 101.6
[2019-09-29 06:24] LABS: PLATELET COUNT 97 K/uL (152-353)
[2019-09-29 08:00] VITALS: BP 156/51; TEMP 103.1
[2019-09-29 12:02] VITALS: BP 152/54; TEMP 102
[2019-09-29 16:00] VITALS: BP 126/49; TEMP 99.3
[2019-09-29 20:04] VITALS: BP 140/50; TEMP 99.1
[2019-09-30] VITALS (21 sets, daily range): BP systolic 15–152; BP diastolic 32–88; TEMP 98.1–102
[2019-09-30 06:05] LABS: PLATELET COUNT 98 K/uL (152-353)
[2019-09-30 06:18] LABS: POTASSIUM 3.7 mmol/L (3.6-5.2)
[2019-10-01] VITALS (21 sets, daily range): BP systolic 108–139; BP diastolic 34–74; TEMP 98.4–100.6
[2019-10-01 06:10] LABS: PLATELET COUNT 93 K/uL (152-353)
[2019-10-01 06:25] LABS: POTASSIUM 3.5 mmol/L (3.6-5.2)
[2019-10-02] VITALS (20 sets, daily range): BP systolic 80–147; BP diastolic 40–75; TEMP 96.8–98.6
[2019-10-02 06:12] LABS: PLATELET COUNT 92 K/uL (152-353)
[2019-10-02 06:35] LABS: POTASSIUM 4.5 mmol/L (3.6-5.2)
[2019-10-03] VITALS (19 sets, daily range): BP systolic 84–147; BP diastolic 39–101; TEMP 98.6–99.6
[2019-10-03 06:01] LABS: POTASSIUM 4.9 mmol/L (3.6-5.2)
[2019-10-03 06:06] LABS: PLATELET COUNT 102 K/uL (152-353)
[2019-10-04] VITALS (24 sets, daily range): BP systolic 108–154; BP diastolic 42–69; TEMP 97–98.8
[2019-10-04 05:36] LABS: PLATELET COUNT 113 K/uL (152-353)
[2019-10-04 05:40] LABS: POTASSIUM 4.2 mmol/L (3.6-5.2)
[2019-10-05] VITALS (24 sets, daily range): BP systolic 107–156; BP diastolic 30–77; TEMP 97.5–99
[2019-10-05 05:21] LABS: PLATELET COUNT 133 K/uL (152-353)
[2019-10-05 05:32] LABS: POTASSIUM 4.5 mmol/L (3.6-5.2)
[2019-10-06] VITALS (22 sets, daily range): BP systolic 91–166; BP diastolic 45–88; TEMP 97.7–99.1
[2019-10-06 05:00] LABS: PLATELET COUNT 160 K/uL (152-353)
[2019-10-06 05:10] LABS: POTASSIUM 3.9 mmol/L (3.6-5.2)
[2019-10-07] VITALS (22 sets, daily range): BP systolic 118–175; BP diastolic 48–79; TEMP 98.1–98.8
[2019-10-07 05:35] LABS: PLATELET COUNT 185 K/uL (152-353)
[2019-10-07 06:31] LABS: POTASSIUM 4.2 mmol/L (3.6-5.2)
[2019-10-08] VITALS (23 sets, daily range): BP systolic 72–147; BP diastolic 38–112; TEMP 97–98.7
[2019-10-08 06:24] LABS: PLATELET COUNT 191 K/uL (152-353)
[2019-10-09] VITALS (24 sets, daily range): BP systolic 85–148; BP diastolic 34–66; TEMP 97.8–98.4
[2019-10-09 05:53] LABS: PLATELET COUNT 218 K/uL (152-353)
[2019-10-09 06:07] LABS: POTASSIUM 4.6 mmol/L (3.6-5.2)
[2019-10-10] VITALS (23 sets, daily range): BP systolic 73–1533; BP diastolic 37–83; TEMP 97–98.3
[2019-10-10 05:09] LABS: PLATELET COUNT 252 K/uL (152-353)
[2019-10-11] VITALS (22 sets, daily range): BP systolic 103–164; BP diastolic 32–65; TEMP 97–97.9
[2019-10-11 06:01] LABS: PLATELET COUNT 258 K/uL (152-353)
[2019-10-11 06:03] LABS: POTASSIUM 5.5 mmol/L (3.6-5.2)
[2019-10-12] VITALS (22 sets, daily range): BP systolic 101–167; BP diastolic 33–104; TEMP 97.6–98.1
[2019-10-12 05:17] LABS: POTASSIUM 4.9 mmol/L (3.6-5.2)
[2019-10-12 05:23] LABS: PLATELET COUNT 257 K/uL (152-353)
[2019-10-13] VITALS (23 sets, daily range): BP systolic 80–148; BP diastolic 40–66; TEMP 97.7–99.1
[2019-10-13 05:40] LABS: POTASSIUM 4.6 mmol/L (3.6-5.2)
[2019-10-13 06:15] LABS: PLATELET COUNT 256 K/uL (152-353)
[2019-10-14] VITALS (24 sets, daily range): BP systolic 78–151; BP diastolic 34–98; TEMP 97.9–99.1
[2019-10-14 05:33] LABS: PLATELET COUNT 225 K/uL (152-353)
[2019-10-14 05:51] LABS: POTASSIUM 4.2 mmol/L (3.6-5.2)
[2019-10-15] VITALS (17 sets, daily range): BP systolic 111–171; BP diastolic 38–57; TEMP 98.1–98.8
[2019-10-15 06:26] LABS: POTASSIUM 4.5 mmol/L (3.6-5.2)
[2019-10-15] MEDS ORDERED: ALPR0.5T24 PO (13:00)
[2019-10-15] MEDS ORDERED: ATOR20TA2 PO (13:01)
[2019-10-15] MEDS ORDERED: FURO40TA93 PO (13:03)
== END 2019-10-15 14:34 | DRG 177 ==
LOC: ED 15:32 → MED/SURG 17:15 → ICU 17:15
PROVIDERS: Internal Medicine; Internal Medicine Endocrinology, Diabetes & Metabolism; ADMIT Hospitalist
DX: U07.1 COVID-19 (principal); J96.21 Acute and chronic respiratory failure with hypoxia; J18.8 Other pneumonia, unspecified organism; I13.0 Hypertensive heart and chronic kidney disease with heart failure and stage 1 through stage 4 chronic kidney disease, or unspecified chronic kidney disease; N18.4 Chronic kidney disease, stage 4 (severe); N17.8 Other acute kidney failure; E87.1 Hypo-osmolality and hyponatremia; E44.0 Moderate protein-calorie malnutrition; E87.6 Hypokalemia; D69.6 Thrombocytopenia, unspecified; J44.9 Chronic obstructive pulmonary disease, unspecified; Z99.81 Dependence on supplemental oxygen; E11.22 Type 2 diabetes mellitus with diabetic chronic kidney disease; I50.89 Other heart failure; E03.8 Other specified hypothyroidism; F41.8 Other specified anxiety disorders
CPT/HCPCS: 36415; 36600; 51702; 80048; 80053; 80202; 81000; 82550; 82805; 83605; 83880; 84439; 84443; 84484; 85007; 85027; 85610; 85730; 87040; 87070; 87077; 87205; 87635; 93005; 94664; 94667; 94668; 94760; 96360; 96365; 96375; 99284; J0132; J0456; J0696; J1650; J1940; J2270; J2405; J3370; U0002

== ENCOUNTER 2019-10-21 10:15 | Inpatient (IN) | payer OTHER ==
[~2019-10-21 10:15] MED LIST changes: +AMLODIPINE BESYLATE PO; +ATOR20TA2 PO; +CELEXA10 MG PO; +FURO40TA93 PO; +MYRBETRIQ50 MG PO
== END 2019-11-20 10:21 | disposition still patient (30) ==
LOC: PAVB 10:15
PROVIDERS: ADMIT Internal Medicine
DX: U07.1 COVID-19 (principal); J18.9 Pneumonia, unspecified organism; R53.1 Weakness; M62.81 Muscle weakness (generalized); Z74.1 Need for assistance with personal care
CPT/HCPCS: 87635; U0002

== ENCOUNTER 2019-11-19 14:47 | Outpatient (CLI) | payer OTHER | END 2019-11-19 20:39 | disposition home or self-care (01) | LOC: CT 14:47 | DX: H81.10 Benign paroxysmal vertigo, unspecified ear (principal); R51 Headache ==

== ENCOUNTER 2019-11-20 11:24 | Inpatient (IN) | payer OTHER ==
[2019-11-23] MEDS ORDERED: CENTRUM SILVER1 TA1 PO (14:23)
[2019-11-23] MEDS ORDERED: CULTURELL3 PO (14:26)
[2019-11-23] MEDS ORDERED: DOC-Q-LAX1 TAB PO (14:28)
[2019-11-23] MEDS ORDERED: LEVO0.1224 PO (14:31)
[2019-11-23] MEDS ORDERED: PANTOPRAZOLE 40MG TA PO (14:35)
[2019-11-23] MEDS ORDERED: MONT10TA PO (14:36)
[2019-11-23] MEDS ORDERED: TRELEGY ELLIPTA1 AER INH (14:37)
[2019-11-23] MEDS ORDERED: VITAMIN D32000 UNIT PO (14:39)
[2019-11-23] MEDS ORDERED: ARTIFICIA7 OPTH (14:43)
[2019-11-23] MEDS ORDERED: IPRAAER INH (14:50)
[2019-11-23] MEDS ORDERED: RULOX PO (14:55)
[2019-11-23] MEDS ORDERED: ONDA4TAB3 PO (14:57)
== END 2019-12-02 11:00 | disposition short-term general hospital (02) ==
LOC: PAVB 11:24
PROVIDERS: ADMIT Internal Medicine
DX: U07.1 COVID-19 (principal); J18.9 Pneumonia, unspecified organism; R53.1 Weakness; M62.81 Muscle weakness (generalized); Z74.1 Need for assistance with personal care

== ENCOUNTER 2019-11-23 06:33 | Inpatient (IN) | payer OTHER ==
[2019-11-23] VITALS (21 sets, daily range): BP systolic 83–133; BP diastolic 30–61; TEMP 97.5–103; Ht 157.5 cm; Wt 60.1 kg
[~2019-11-23] VITALS: Ht 157.5 cm; Wt 60.1 kg
[2019-11-23 07:42] LABS: PLATELET COUNT 123 K/uL (152-353)
[2019-11-23] MEDS ORDERED: CENTRUM SILVER1 TA1 PO (14:23)
[2019-11-23] MEDS ORDERED: CULTURELL3 PO (14:26)
[2019-11-23] MEDS ORDERED: DOC-Q-LAX1 TAB PO (14:28)
[2019-11-23] MEDS ORDERED: LEVO0.1224 PO (14:31)
[2019-11-23] MEDS ORDERED: PANTOPRAZOLE 40MG TA PO (14:35)
[2019-11-23] MEDS ORDERED: MONT10TA PO (14:36)
[2019-11-23] MEDS ORDERED: TRELEGY ELLIPTA1 AER INH (14:37)
[2019-11-23] MEDS ORDERED: VITAMIN D32000 UNIT PO (14:39)
[2019-11-23] MEDS ORDERED: ARTIFICIA7 OPTH (14:43)
[2019-11-23] MEDS ORDERED: IPRAAER INH (14:50)
[2019-11-23] MEDS ORDERED: RULOX PO (14:55)
[2019-11-23] MEDS ORDERED: ONDA4TAB3 PO (14:57)
[2019-11-24] VITALS (24 sets, daily range): BP systolic 103–152; BP diastolic 41–79; TEMP 91–99.5
[2019-11-24 06:03] LABS: POTASSIUM 3.9 mmol/L (3.6-5.2)
[2019-11-24 06:20] LABS: PLATELET COUNT 72 K/uL (152-353)
[2019-11-25] VITALS (23 sets, daily range): BP systolic 107–165; BP diastolic 54–87; TEMP 97.5–99.5
[2019-11-25 05:59] LABS: PLATELET COUNT 69 K/uL (152-353)
[2019-11-25 06:19] LABS: POTASSIUM 3.9 mmol/L (3.6-5.2)
[2019-11-26] VITALS (22 sets, daily range): BP systolic 109–157; BP diastolic 21–86; TEMP 97.3–100.6
[2019-11-26 06:14] LABS: PLATELET COUNT 69 K/uL (152-353)
[2019-11-26 06:44] LABS: POTASSIUM 4.4 mmol/L (3.6-5.2)
[2019-11-27] VITALS (24 sets, daily range): BP systolic 106–144; BP diastolic 57–82; TEMP 97.7–100.6
[2019-11-27 05:34] LABS: PLATELET COUNT 68 K/uL (152-353)
[2019-11-27 05:48] LABS: POTASSIUM 4.2 mmol/L (3.6-5.2)
[2019-11-28] VITALS (22 sets, daily range): BP systolic 115–152; BP diastolic 57–77; TEMP 97.5–102
[2019-11-28 05:20] LABS: PLATELET COUNT 89 K/uL (152-353)
[2019-11-28 05:29] LABS: POTASSIUM 3.6 mmol/L (3.6-5.2)
[2019-11-29] VITALS (23 sets, daily range): BP systolic 120–160; BP diastolic 62–86; TEMP 97–98.3
[2019-11-29 05:16] LABS: PLATELET COUNT 83 K/uL (152-353)
[2019-11-29 05:20] LABS: POTASSIUM 4.3 mmol/L (3.6-5.2)
[2019-11-30] VITALS (24 sets, daily range): BP systolic 130–166; BP diastolic 73–835; TEMP 97–97.9
[2019-12-01] VITALS (24 sets, daily range): BP systolic 121–172; BP diastolic 68–91; TEMP 96.3–100.3
[2019-12-01 05:49] LABS: PLATELET COUNT 131 K/uL (152-353)
[2019-12-01 06:08] LABS: POTASSIUM 5.9 mmol/L (3.6-5.2)
[2019-12-02] VITALS (14 sets, daily range): BP systolic 136–168; BP diastolic 67–109; TEMP 97.9–99.9
[2019-12-02 05:46] LABS: PLATELET COUNT 81 K/uL (152-353)
[2019-12-02 06:01] LABS: POTASSIUM 5.9 mmol/L (3.6-5.2)
== END 2019-12-02 14:30 | disposition short-term general hospital (02) | DRG 871 ==
LOC: ED 06:33 → ICU 08:34
PROVIDERS: Family Medicine; Internal Medicine; Internal Medicine Endocrinology, Diabetes & Metabolism; ADMIT Emergency Medicine Emergency Medical Services
DX: A41.02 Sepsis due to Methicillin resistant Staphylococcus aureus (principal); J96.01 Acute respiratory failure with hypoxia; J18.8 Other pneumonia, unspecified organism; E87.1 Hypo-osmolality and hyponatremia; N17.9 Acute kidney failure, unspecified; E44.0 Moderate protein-calorie malnutrition; I13.0 Hypertensive heart and chronic kidney disease with heart failure and stage 1 through stage 4 chronic kidney disease, or unspecified chronic kidney disease; I95.89 Other hypotension; E11.22 Type 2 diabetes mellitus with diabetic chronic kidney disease; N18.3 Chronic kidney disease, stage 3 (moderate); D69.6 Thrombocytopenia, unspecified; F41.9 Anxiety disorder, unspecified; E03.8 Other specified hypothyroidism; I50.89 Other heart failure
CPT/HCPCS: 36415; 36416; 80048; 80053; 80170; 80202; 81000; 83605; 83735; 84439; 84443; 85027; 85379; 87040; 87077; 87185; 87186; 87205; 87635; 94668; 94760; 96360; 96365; 99285; J0456; J0696; J1100; J1580; J1650; J1940; J2060; J2270; J2930; J3370; J3490; U00003

== ENCOUNTER 2019-12-02 14:30 | Inpatient (IN) | payer OTHER ==
[~2019-12-02] VITALS: Ht 157.5 cm; Wt 61.8 kg
[~2019-12-02 14:30] MED LIST changes: +ARTIFICIA7 OPTH; +CENTRUM SILVER1 TA1 PO; +CULTURELL3 PO; +DOC-Q-LAX1 TAB PO; +IPRAAER INH; +LEVO0.1224 PO; +MONT10TA PO; +ONDA4TAB3 PO; +PANTOPRAZOLE 40MG TA PO; +RULOX PO; +TRELEGY ELLIPTA1 AER INH; +VITAMIN D32000 UNIT PO
[2019-12-02 18:18] VITALS: BP 146/86; TEMP 98.6; Ht 157.5 cm; Wt 61.8 kg
[2019-12-02 20:00] VITALS: BP 166/92; TEMP 98.4
[2019-12-03 08:00] VITALS: BP 156/85; TEMP 96.2
[2019-12-03 20:02] VITALS: BP 181/61; TEMP 98.9
[2019-12-04 08:00] VITALS: BP 168/78; TEMP 96.7
[2019-12-04 20:00] VITALS: BP 151/71; TEMP 96.1
[2019-12-05 08:00] VITALS: BP 166/76; TEMP 97.9
[2019-12-06 08:00] VITALS: BP 154/67; TEMP 100.1
== END 2019-12-06 18:50 | disposition expired | DRG 871 ==
LOC: MED/SURG 14:30
PROVIDERS: ADMIT Internal Medicine
DX: A41.02 Sepsis due to Methicillin resistant Staphylococcus aureus (principal); J18.8 Other pneumonia, unspecified organism; I10 Essential (primary) hypertension